=== PATIENT | male | born 1970 | race Caucasian/White ===

== ENCOUNTER 2020-08-13 12:53 | Inpatient (IN) ==
[2020-08-13 12:58] VITALS: BMI 29.2
--- NOTE | 2020-08-13 13:36 | DR.EXTPAIN ---
HPI Time seen Time Seen by Provider: 08/13/20 13:21 PCP Primary Care Physician: THALIA Complaint/Symptoms Chief Complaint:: PT C/O INFECTED LT GREAT TOE. PT STATES THE TOE HAS BEEN INFECTED FOR APPROX 1 MONTH. PT STATES HE HAS JUST BEEN WEARING THE WRONG SHOES. PT IS NOTED TO BE A DIABETIC COVID-19 Coronavirus risk:travel/contact w/high risk person: No Has patient experienced Coronavirus symptoms: No Source History Provided: Patient Mode of arrival Mode of Arrival: Ambulatory Timing Onset of Chief Complaint: 07/14/20 PMH PMH Past Medical History: Yes Past Medical History: Diabetes and Hypertension Past Surgical History: No Family History History of Family Medical Conditions: No Social History Does any household member use tobacco: No Alcohol Use: Heavy and DAILY Do you use any recreational Drugs:: No Lives With: Family Lives Where: Home Travel Risk Coronavirus risk:travel/contact w/high risk person: No Has patient experienced Coronavirus symptoms: No Infectious screening In the last 2 months have you had wt loss of >10#?: NO Have you had fever, night sweats or hemotysis?: No Have you traveled outside the country in the last 6 months?: No Isolation: Standard PE Vital Signs Vitals: Temperature 98.2 F Pulse Rate [Right Radial] 88 Pulse Rate 98 Respiratory Rate 20 Blood Pressure [Left Arm] 158/88 Blood Pressure 166/82 O2 Sat by Pulse Oximetry 100 ROR Labs Reviewed Result Diagrams: 08/13/20 13:49 08/13/20 13:53 Laboratory: 08/13/20 13:58 Toe - Left Big Wound Gram Stain - Final WBC 7.7 X10^3/uL (3.6-10.0) 08/13/20 13:49 RBC 3.92 X10^6/uL (3.5-5.4) 08/13/20 13:49 Hgb 12.5 g/dL (12.0-16.0) 08/13/20 13:49 Hct 35.7 % (36.0-47.0) L 08/13/20 13:49 MCV 91.0 fL (80.0-100.0) 08/13/20 13:49 MCH 31.8 pg (27.0-34.0) 08/13/20 13:49 MCHC 35.0 g/dL (33.0-35.0) 08/13/20 13:49 RDW 13.0 % (11.6-16.5) 08/13/20 13:49 Plt Count 287 X10^3/uL (150.0-450.0) 08/13/20 13:49 MPV 7.8 fL (7.4-11.0) 08/13/20 13:49 Neut % (Auto) 70.1 % (42.0-75.0) 08/13/20 13:49 Lymph % (Auto) 15.2 % (21.0-51.0) L 08/13/20 13:49 Converse % (Auto) 8.2 % (0.0-13.0) 08/13/20 13:49 Eos % (Auto) 4.8 % (0.9-2.9) H 08/13/20 13:49 Baso % (Auto) 1.7 % (0.2-1.0) H 08/13/20 13:49 Neut # (Auto) 5.4 x10^3/uL (2.2-4.8) H 08/13/20 13:49 Lymph # (Auto) 1.2 X10^3/uL (1.3-2.9) L 08/13/20 13:49 Converse # (Auto) 0.6 x10^3/uL (0.3-0.8) 08/13/20 13:49 Eos # (Auto) 0.4 x10^3/uL (0.0-0.2) H 08/13/20 13:49 Baso # (Auto) 0.1 X10^3/uL (0.0-0.1) 08/13/20 13:49 Absolute Nucleated RBC 0.0 /100WBC 08/13/20 13:49 Sodium 136 mmol/L (136-145) 08/13/20 13:53 Corrected Sodium 140 mmol/L (136-145) 08/13/20 13:53 Potassium 4.1 mmol/L (3.5-5.1) 08/13/20 13:53 Chloride 98 mmol/L (98-107) 08/13/20 13:53 Carbon Dioxide 28.7 mmol/L (21-32) 08/13/20 13:53 BUN 5 mg/dL (7-18) L 08/13/20 13:53 Creatinine 1.31 mg/dL (0.55-1.02) H 08/13/20 13:53 Est GFR (MDRD) Af Amer 55 (>60) L 08/13/20 13:53 Est GFR (MDRD) Non-Af 45 (>60) L 08/13/20 13:53 Glucose 276 mg/dL (65-99) H 08/13/20 13:53 Hemoglobin A1c 10.5 % 08/13/20 13:49 Calcium 8.6 mg/dL (8.5-10.1) 08/13/20 13:53 Corrected Calcium 9.2 mg/dL (8.5-10.1) 08/13/20 13:53 Total Bilirubin 0.30 mg/dL (0.2-1.0) 08/13/20 13:53 AST 10 Units/L (15-37) L 08/13/20 13:53 ALT 21 Units/L (12-78) 08/13/20 13:53 Alkaline Phosphatase 72 Units/L (46-116) 08/13/20 13:53 Total Protein 7.9 g/dL (6.4-8.2) 08/13/20 13:53 Albumin 3.2 g/dL (3.4-5.0) L 08/13/20 13:53 Globulin 4.7 g/dL (2.5-4.5) H 08/13/20 13:53 Albumin/Globulin Ratio 0.7 Ratio (1.1-2.1) L 08/13/20 13:53 Acetone, Semi-Quant Negative (NEGATIVE) 08/13/20 13:49 SARS CoV-2 RNA Rapid CONSTANCE Negative (NEGATIVE) 08/13/20 15:45 Opioid Opioid Risk Tool Age (Freddy box if 16-45): Yes History of Preadolescent Sexual Abuse: No Total: 1 Total Score Risk Category: Low Risk Copyright: Nir KAUR predicting aberrant behaviors
[2020-08-13] MEDS ORDERED: NS 1000 ML 1,000 ML ONE (13:54)
[2020-08-13] MEDS ORDERED: NS 1000 ML 1,000 ML IV SCH (14:00)
[2020-08-13 14:05] LABS: BASOPHILS # (AUTO) 0.1 X10^3/uL (0.0-0.1); BASOPHILS % (AUTO) 1.7 % (0.2-1.0); EOSINOPHILS # (AUTO) 0.4 x10^3/uL (0.0-0.2); EOSINOPHILS % (AUTO) 4.8 % (0.9-2.9); HEMATOCRIT 35.7 % (36.0-47.0); HEMOGLOBIN 12.5 g/dL (12.0-16.0); LYMPHOCYTES # (AUTO) 1.2 X10^3/uL (1.3-2.9); LYMPHOCYTES % (AUTO) 15.2 % (21.0-51.0); MEAN CORPUSCULAR HEMOGLOBIN 31.8 pg (27.0-34.0); MEAN PLATELET VOLUME 7.8 fL (7.4-11.0); MONOCYTES # (AUTO) 0.6 x10^3/uL (0.3-0.8); MONOCYTES % (AUTO) 8.2 % (0.0-13.0); NEUTROPHILS # (AUTO) 5.4 x10^3/uL (2.2-4.8); NEUTROPHILS % (AUTO) 70.1 % (42.0-75.0); PLATELET COUNT 287 X10^3/uL (150.0-450.0); RED BLOOD COUNT 3.92 X10^6/uL (3.5-5.4); WHITE BLOOD COUNT 7.7 X10^3/uL (3.6-10.0)
--- NOTE | 2020-08-13 14:17 | RAD ---
HISTORYPT C/O INFECTED LT GREAT TOE. PT STATES THE TOE HAS BEEN INFECTED FOR APPROX 1 MONTH.STUDYCHEST, 1 VIEWCOMPARISONNoneFINDINGSThe trachea is midline. The cardiac silhouette is unremarkable . The lungs are clear without focal infiltrate or effusion. The bony thorax is unremarkable.IMPRESSIONNo acute cardiopulmonary disease.Electronically signed by: Kirstie Salguero (Aug 13, 2020 14:15:31)
[2020-08-13 14:22] LABS: ALBUMIN 3.2 g/dL (3.4-5.0); CALCIUM 8.6 mg/dL (8.5-10.1); CARBON DIOXIDE 28.7 mmol/L (21-32); COR CA(FOR HYPOALB) 9.2 mg/dL (8.5-10.1); CREATININE 1.31 mg/dL (0.55-1.02); TOTAL PROTEIN 7.9 g/dL (6.4-8.2)
--- NOTE | 2020-08-13 14:23 | RAD ---
FOOT, LEFTHistory: PT C/O INFECTED LT GREAT TOE. PT STATES THE TOE HAS BEEN INFECTED FOR APPROX 1 MONTH.Comparison: NoneFindings: There is soft tissue swelling and ulceration of the great toe. There is underlying osteolysis and destruction of the great toe IP joint, proximal phalanx head and distal phalanx base, compatible with osteomyelitis/septic arthritis. No soft tissue gas to suggest necrotizing infection seen.Impression:Osteomyelitis/septic arthritis of the great toe IP joint. Recommend contrast enhanced MRI (of the forefoot only) to evaluate the extent of bone infection, which can be done on a nonemergent basis.Electronically signed by: DARIAN RAMIREZ (Aug 13, 2020 14:21:38)
[2020-08-13] MEDS ORDERED: VANCOMYCIN IV *PREMIX 1 G/200 ML BAG 1 G/200 ML PIGGYBACK IV ONE ×2 (15:37→15:42)
[2020-08-13 16:15] LABS: HEMOGLOBIN A1C 10.5 %
[2020-08-13 16:23] LABS: SERUM ACETONE NEGATIVE (NEGATIVE)
[2020-08-13 18:14] LABS: ABG ALLEN TEST POS; ABG BASE EXCESS 5.8 mmol/L (-2.0-2.0); ABG HCO3 29.8 mmol/L (22-26)
[2020-08-13] MEDS ORDERED: DUONEB 0.5 MG/3 MG (3 mL) NEB ONE (18:17)
[2020-08-13] MEDS ORDERED: SALINE 3% 15 ML NEB TX NEB ONE (18:17)
[2020-08-13] MEDS ORDERED: ZOFRAN TAB 4 MG PO PRN (18:19)
[2020-08-13] MEDS ORDERED: MORPHINE SULFATE INJ 4 MG IVP PRN (18:19)
[2020-08-13] MEDS: NS 1000 ML 1,000 ML IV SCH (18:52)
[2020-08-13] MEDS ORDERED: CATAPRES-TTS-2 TD SCH (20:00)
[2020-08-13] MEDS: ZOSYN VIAL 3.375 GRAMS 3.375 G in NS 100 ML IV + SPIKE MINIBAG* 100 ML IV SCH (20:42)
[2020-08-13] MEDS: CHECK PATCH XX SCH (20:45)
[2020-08-13] MEDS: SNACK - Diabetic Appropriate PO SCH (21:27)
[2020-08-14] MEDS: ZOSYN VIAL 3.375 GRAMS 3.375 G in NS 100 ML IV + SPIKE MINIBAG* 100 ML IV SCH ×4 (00:14→21:20)
[2020-08-14] MEDS: NS 1000 ML 1,000 ML IV SCH ×4 (01:06→17:03)
[2020-08-14] MEDS: VANCOMYCIN IV *PREMIX 1 G/200 ML BAG 1 G/200 ML PIGGYBACK IV SCH ×2 (03:36→16:58)
[2020-08-14 05:16] LABS: BASOPHILS # (AUTO) 0.1 X10^3/uL (0.0-0.1); BASOPHILS % (AUTO) 1.3 % (0.2-1.0); EOSINOPHILS # (AUTO) 0.3 x10^3/uL (0.0-0.2); EOSINOPHILS % (AUTO) 4.7 % (0.9-2.9); HEMATOCRIT 34.7 % (42.0-54.0); HEMOGLOBIN 12.1 g/dL (13.5-18.0); LYMPHOCYTES # (AUTO) 1.5 X10^3/uL (1.3-2.9); LYMPHOCYTES % (AUTO) 21.4 % (21.0-51.0); MEAN CORPUSCULAR HEMOGLOBIN 31.8 pg (27.0-34.0); MEAN CORPUSCULAR HGB CONC 34.9 g/dL (33.0-35.0); MEAN PLATELET VOLUME 7.8 fL (7.4-11.0); MONOCYTES # (AUTO) 0.6 x10^3/uL (0.3-0.8); MONOCYTES % (AUTO) 8.6 % (0.0-13.0); NEUTROPHILS # (AUTO) 4.4 x10^3/uL (2.2-4.8); PLATELET COUNT 272 X10^3/uL (150.0-450.0); RED BLOOD COUNT 3.81 X10^6/uL (4.7-6.0); RED CELL DISTRIBUTION WIDTH 12.7 % (11.6-16.5); WHITE BLOOD COUNT 6.8 X10^3/uL (3.6-10.0)
[2020-08-14 05:17] LABS: ALANINE AMINOTRANSFERASE 20 Units/L (12-78); ALBUMIN 2.8 g/dL (3.4-5.0); ALKALINE PHOSPHATASE 61 Units/L (46-116); ASPARTATE AMINO TRANSFERASE 13 Units/L (15-37); BLOOD UREA NITROGEN 6 mg/dL (7-18); CALCIUM 8.7 mg/dL (8.5-10.1); CARBON DIOXIDE 31.3 mmol/L (21-32); CHLORIDE 101 mmol/L (98-107); COR CA(FOR HYPOALB) 9.7 mg/dL (8.5-10.1); COR NA(FOR HYPERGLY) 142 mmol/L (136-145); CREATININE 1.03 mg/dL (0.70-1.30); SODIUM 139 mmol/L (136-145); TOTAL PROTEIN 7.2 g/dL (6.4-8.2); eGFR NON BLACK RACES > 60 (>60)
[2020-08-14] MEDS: CHECK PATCH XX SCH ×2 (08:05→22:00)
[2020-08-14] MEDS ORDERED: XYLOCAINE 1 % (PLAIN) ONE (13:00)
[2020-08-14] MEDS: HumuLIN R SUBCUT PRN (17:10)
[2020-08-14] MEDS: SNACK - Diabetic Appropriate PO SCH (20:00)
--- NOTE | 2020-08-14 20:43 | DR.H&P ---
H&P - History & Physical for Day of: H&P Date: 08/13/20 - Chief Complaint Chief Complaint: LEFT GREAT TOE WOUND, SWELLING, PAIN, DRAINAGE - History of Present Illness History of Present Illness: IS A 50 YEAR OLD WHITE MALE WHO PRESENTED TO THE ER WITH COMPLAINTS OF REDNESS, SWELLING, AND DRAINAGE TO THE LEFT GREAT TOE. PATIENT STATED THAT SWELLING AND DRAINAGE STARTED ABOUT ONE MONTH PRIOR. ON EXAMINATION, LEFT GREAT TOE IS NOTED TO HAVE MODERATE SWELLING, ERYTHEMA, AND PURULENT DRAINAGE. THERE IS AN OPEN WOUND TO THE TIP OF THE TOE. PATIENT HAS A PMH OF DIABETES AND HTN. PATIENT REPORTS THAT HIS BLOOD SUGAR USUALLY RUNS AROU [place] 400. HE REPORTS THAT HE HAS BEEN PRESCRIBED METFORMIN 1000MG PO BID, BUT HASNT BEEN TAKING IT. ON ARRIVAL TO THE ER, VITALS WERE 98.2-98-20-98%-166/82. LABS WERE OBTAINED. ABNORMAL LAB VALUES INCLUDE THE FOLLOWING: HCT 35.7, BUN 5, CREATININE 1.31, GLUCOSE 276, AST 10, ALBUMIN 3.2, GLOBULIN 4.7. ACETONES NEGATIVE, COVID-19 NEGATIVE. BLOOD AND WOUND CULTURES WERE SET UP. LEFT FOOT XRAY WAS OBTAINED AND REVEALED: Osteomyelitis/septic arthritis of the great toe IP joint. Recommend contrast enhanced MRI (of the forefoot only) to evaluate the extent of bone infection, which can be done on a nonemergent basis. A CHEST XRAY WAS OBTAINED AND REVEALED: The trachea is midline. The cardiac silhouette is unremarkable . The lungs are clear without focal infiltrate or effusion. The bony thorax is unremarkable. IN THE ER, HE WAS GIVEN VANCOMYCIN 1G IV X 1 DOSE. HE WAS ADMITTED TO THE HOSPITAL FOR FURTHER EVALUATION AND TREATMENT OF OSTEOMYELITIS OF THE LEFT FOOT, DIABETIC FOOT ULCER, AND SEPTIC JOINT. HE WAS STARTED ON NORMAL SALINE AT 125 ML/HR, ZOSYN 3.375G IV TID, VANCOMYCIN 1G IV Q12H, ZOFRAN 4MG PO Q8H PRN, MORPHINE 4MG IV Q6H PRN PAIN, OTBS ACHS, CATAPRES PATCH 0.2MG TD/HR, AND HUMULIN R SLIDING SCALE. WE WILL CONSULT WITH , GENERAL SURGEON FOR POSSIBLE DEBRIDEMENT. OTHERWISE, WE WILL FOLLOW UP WITH AM LABS AND CONTINUE TO MONITOR. TIME SPENT ON CLINICAL ASSESSMENT, REVIEWING LABS AND IMAGING, DECISION MAKING, AND DOCUMENTATION GREATER THAN 75 MINS. - Past Medical History Past Medical History: Hypertension, Diabetes - Family History Family Medical History: Diabetes Mellitus, Cancer, [place], Hypertension - Social History Does patient currently use any type of tobacco product: No Have you used tobacco products in the last 12 months: No Type of Tobacco Use: Cigarettes How many years tobacco product used: 15 Does any household member use tobacco: No Alcohol Use: DAILY Drug Use: None - Medications Home Medications: No Known Drug Allergies Allergy (Verified 08/13/20 12:54) CONTINUE taking the following medications NK 08/14/20 [History] - Review of Systems Constitutional: No Symptoms Reported Eyes: No Symptoms Reported ENT: No Symptoms Reported Respiratory: Shortness of Breath Cardiovascular: No Symptoms Reported Gastrointestinal: No Symptoms Reported Genitourinary: No Symptoms Reported Musculoskeletal: Foot Pain Skin: See HPI, Wound Neurological: No Symptoms Reported - Physical Exam Vital Signs: Temperature 97.7 F Pulse Rate [Left Brachial] 71 Pulse Rate [Right Radial] 80 Pulse Rate 83 Respiratory Rate 20 Blood Pressure [Left Arm] 145/77 Blood Pressure 166/82 O2 Sat by Pulse Oximetry 99 Oriented: Normal Eyes: Normal Ear: Normal Nose: Normal Throat: Normal Respiratory: Diminished Throughout Cardiovascular: Normal : Normal Auscultation: Bowel Sounds: Normal Palpation: Normal Tenderness: Normal Skin: Red, Tender, Wound Musculoskeletal: Left, Foot, Swelling Psychiatric: Normal Mood Description: Calm Affect: Normal Speech Pattern: Clear - Assessment/Plan (1) Osteomyelitis of foot, left, acute Status: Acute Plan: ADMIT, NORMAL SALINE AT 125 ML/HR, ZOSYN 3.375G IV TID, VANCOMYCIN 1G IV Q12H, ZOFRAN 4MG PO Q8H PRN, MORPHINE 4MG IV Q6H PRN PAIN, OTBS ACHS, CATAPRES PATCH 0.2MG TD/HR, AND HUMULIN R SLIDING SCALE (2) Septic joint Qualifiers: Septic arthritis location: foot Septic arthritis organism: due to unspecified organism Laterality: left Qualified Code(s): M00.9 - Pyogenic arthritis, unspecified Status: Acute (3) Diabetic foot ulcer Qualifiers: Diabetic foot ulcer location: toe Diabetes mellitus type: type 2 Laterality: left Non-pressure ulcer stage: unspecified non-pressure ulcer s tage Qualified Code(s): E11.621 - Type 2 diabetes mellitus with foot ulcer; L97.529 - Non-pressure chronic ulcer of other part of left foot with unspecified severity Status: Acute (4) Diabetes Qualifiers: Diabetes mellitus type: type 2 Diabetes mellitus complication status: with skin complications Diabetes mellitus complication detail: with foot ulcer Status: Chronic - Allergies Allergies/Adverse Reactions: Allergies Allergy/AdvReac Type Severity Reaction Status Date / Time No Known Drug Allergies Allergy Verified 08/13/20 12:54
[2020-08-15] MEDS: NS 1000 ML 1,000 ML IV SCH ×3 (01:49→15:22)
[2020-08-15 03:17] LABS: ALANINE AMINOTRANSFERASE 22 Units/L (12-78); ALBUMIN 2.9 g/dL (3.4-5.0); ALKALINE PHOSPHATASE 61 Units/L (46-116); ASPARTATE AMINO TRANSFERASE 14 Units/L (15-37); BLOOD UREA NITROGEN 7 mg/dL (7-18); CALCIUM 8.8 mg/dL (8.5-10.1); CARBON DIOXIDE 31.8 mmol/L (21-32); CHLORIDE 102 mmol/L (98-107); COR CA(FOR HYPOALB) 9.7 mg/dL (8.5-10.1); COR NA(FOR HYPERGLY) 141 mmol/L (136-145); SODIUM 139 mmol/L (136-145); TOTAL PROTEIN 7.6 g/dL (6.4-8.2); eGFR NON BLACK RACES > 60 (>60)
[2020-08-15 03:20] LABS: BASOPHILS # (AUTO) 0.1 X10^3/uL (0.0-0.1); BASOPHILS % (AUTO) 1.3 % (0.2-1.0); EOSINOPHILS # (AUTO) 0.3 x10^3/uL (0.0-0.2); EOSINOPHILS % (AUTO) 5.1 % (0.9-2.9); HEMOGLOBIN 12.9 g/dL (13.5-18.0); LYMPHOCYTES # (AUTO) 1.5 X10^3/uL (1.3-2.9); LYMPHOCYTES % (AUTO) 26.8 % (21.0-51.0); MEAN CORPUSCULAR HEMOGLOBIN 31.9 pg (27.0-34.0); MEAN CORPUSCULAR VOLUME 91.3 fL (80.0-100.0); MEAN PLATELET VOLUME 7.6 fL (7.4-11.0); MONOCYTES # (AUTO) 0.5 x10^3/uL (0.3-0.8); MONOCYTES % (AUTO) 9.2 % (0.0-13.0); NEUTROPHILS # (AUTO) 3.2 x10^3/uL (2.2-4.8); NEUTROPHILS % (AUTO) 57.6 % (42.0-75.0); PLATELET COUNT 251 X10^3/uL (150.0-450.0); RED BLOOD COUNT 4.05 X10^6/uL (4.7-6.0); WHITE BLOOD COUNT 5.6 X10^3/uL (3.6-10.0)
[2020-08-15 03:32] LABS: VANCOMYCIN,TROUGH 9.4 ug/mL (15-20)
[2020-08-15] MEDS: VANCOMYCIN IV *PREMIX 1 G/200 ML BAG 1 G/200 ML PIGGYBACK IV SCH ×3 (03:39→21:00)
[2020-08-15] MEDS: ZOSYN VIAL 3.375 GRAMS 3.375 G in NS 100 ML IV + SPIKE MINIBAG* 100 ML IV SCH ×3 (05:30→22:18)
[2020-08-15] MEDS: CHECK PATCH XX SCH ×2 (09:34→21:04)
[2020-08-15] MEDS: HumuLIN R SUBCUT PRN ×3 (11:25→20:50)
[2020-08-15] MEDS ORDERED: NS 1000 ML 1,000 ML ONE (12:03)
[2020-08-15] MEDS ORDERED: FENTANYL INJ 100 mcg ONE (12:14)
[2020-08-15] MEDS ORDERED: DIPRIVAN VIAL ONE (12:18)
[2020-08-15] MEDS ORDERED: BETADINE SOLN ONE (12:25)
--- NOTE | 2020-08-15 19:59 | PCM.PROG ---
Progress Note - Progress Note for Day of Date of Exam: 08/15/20 - Subjective Subjective: THE PATIENT IS A 50-YEAR-OLD WHITE MALE WHO WAS ADMITTED ON 08/13/20 SECONDARY TO CELLULITIS OF THE LEFT GREAT TOE. IMAGING READS PROBABLE OSTEOMYELITIS. SURGERY FOR i&d IS SCHEDULED FOR TODAY. PATIENT STATES THAT WOUND DEVELOPED FROM WEARING ILL FITTING SHOES. PATIENT STATES HE DOES HAVE DECREASED SENSATION TO HIS TOES. DISCUSSED WITH PATIENT CONTROLLING HIS BLOOD SUGARS. PATIENT DENIES ANY PAIN OR COMPLAINTS. - Past Medical Family Social History Past Med/Fam/Surg Hx: No changes since H&P Allergies: Allergies No Known Drug Allergies Allergy (Verified 08/13/20 12:54) - Review of Systems ROS: No change since H&P - Vital Signs and I&O's Vital Signs: Temperature 98.5 F Pulse Rate [Right Brachial] 100 Pulse Rate [Left Brachial] 64 Pulse Rate [Right Radial] 80 Pulse Rate 83 Respiratory Rate 18 Blood Pressure [Right Arm] 148/85 Blood Pressure [Left Arm] 182/91 Blood Pressure 166/82 O2 Sat by Pulse Oximetry 95 Intake and Output: Intake & Output 08/12/20 08/13/20 08/14/20 08/15/20 23:59 23:59 23:59 23:59 Intake Total 1375 / 1375 2956 / 2956 3003 / 3003 Output Total 1000 / 1000 1600 / 1600 2780 / 2780 Balance 375 / 375 1356 / 1356 223 / 223 - Physical Exam Oriented: Normal Eyes: Normal Ear: Normal Nose: Normal Throat: Normal Cardiovascular: Normal : Normal Auscultation: Bowel Sounds: Normal Palpation: Normal Tenderness: Normal Skin: Red, Tender, Wound (left great toe edematous with erythema and necrotic crusting to base of toe. Twice circumference of right great toe.) Musculoskeletal: Left, Foot, Swelling Psychiatric: Normal Mood Description: Calm Affect: Normal Speech Pattern: Clear, Appropriate - Laboratory and Diagnostics Result Diagrams: 08/15/20 03:00 08/15/20 03:00 Labs: 08/15/20 12:56 Toe - Left Big Wound Gram Stain - Final 08/13/20 13:53 Blood Blood Culture - Preliminary 08/13/20 13:49 Blood Blood Culture - Preliminary 08/13/20 13:58 Toe - Left Big Wound Gram Stain - Final 08/13/20 13:58 Toe - Left Big Wound Culture - Final Escherichia Coli Proteus Vulgaris Laboratory WBC 5.6 X10^3/uL (3.6-10.0) 08/15/20 03:00 RBC 4.05 X10^6/uL (4.7-6.0) L 08/15/20 03:00 Hgb 12.9 g/dL (13.5-18.0) L 08/15/20 03:00 Hct 37.0 % (42.0-54.0) L 08/15/20 03:00 MCV 91.3 fL (80.0-100.0) 08/15/20 03:00 MCH 31.9 pg (27.0-34.0) 08/15/20 03:00 MCHC 35.0 g/dL (33.0-35.0) 08/15/20 03:00 RDW 13.0 % (11.6-16.5) 08/15/20 03:00 Plt Count 251 X10^3/uL (150.0-450.0) 08/15/20 03:00 MPV 7.6 fL (7.4-11.0) 08/15/20 03:00 Neut % (Auto) 57.6 % (42.0-75.0) 08/15/20 03:00 Lymph % (Auto) 26.8 % (21.0-51.0) 08/15/20 03:00 Ritchie % (Auto) 9.2 % (0.0-13.0) 08/15/20 03:00 Eos % (Auto) 5.1 % (0.9-2.9) H 08/15/20 03:00 Baso % (Auto) 1.3 % (0.2-1.0) H 08/15/20 03:00 Neut # (Auto) 3.2 x10^3/uL (2.2-4.8) 08/15/20 03:00 Lymph # (Auto) 1.5 X10^3/uL (1.3-2.9) 08/15/20 03:00 Ritchie # (Auto) 0.5 x10^3/uL (0.3-0.8) 08/15/20 03:00 Eos # (Auto) 0.3 x10^3/uL (0.0-0.2) H 08/15/20 03:00 Baso # (Auto) 0.1 X10^3/uL (0.0-0.1) 08/15/20 03:00 Absolute Nucleated RBC 0.1 /100WBC 08/15/20 03:00 Sample Site Rr 08/13/20 17:51 ABG pH 7.480 (7.35-7.45) H 08/13/20 17:51 ABG pCO2 40.0 mmHg (35.0-45.0) 08/13/20 17:51 ABG pO2 86.0 mmHg (80.0-100.0) 08/13/20 17:51 ABG HCO3 29.8 mmol/L (22-26) H 08/13/20 17:51 ABG O2 Saturation 97.0 % (90-100) 08/13/20 17:51 ABG Base Excess 5.8 mmol/L (-2.0-2.0) H 08/13/20 17:51 Bereket Test Pos 08/13/20 17:51 A-a Gradient 14.0 mmHg 08/13/20 17:51 FiO2 21 08/13/20 17:51 Blood Gas Comments Pt tianna well cdn 08/13/20 17:51 Sodium 139 mmol/L (136-145) 08/15/20 03:00 Corrected Sodium 141 mmol/L (136-145) 08/15/20 03:00 Potassium 3.9 mmol/L (3.5-5.1) 08/15/20 03:00 Chloride 102 mmol/L (98-107) 08/15/20 03:00 Carbon Dioxide 31.8 mmol/L (21-32) 08/15/20 03:00 BUN 7 mg/dL (7-18) 08/15/20 03:00 Creatinine 1.00 mg/dL (0.70-1.30) 08/15/20 03:00 Est GFR (MDRD) Af Amer > 60 (>60) 08/15/20 03:00 Est GFR (MDRD) Non-Af > 60 (>60) 08/15/20 03:00 Glucose 198 mg/dL (65-99) H 08/15/20 03:00 POC Glucose (mg/dL) 210 mg/dL (65-99) H 08/15/20 15:33 Hemoglobin A1c 10.5 % 08/13/20 13:49 Calcium 8.8 mg/dL (8.5-10.1) 08/15/20 03:00 Corrected Calcium 9.7 mg/dL (8.5-10.1) 08/15/20 03:00 Total Bilirubin 0.40 mg/dL (0.2-1.0) 08/15/20 03:00 AST 14 Units/L (15-37) L 08/15/20 03:00 ALT 22 Units/L (12-78) 08/15/20 03:00 Alkaline Phosphatase 61 Units/L (46-116) 08/15/20 03:00 Total Protein 7.6 g/dL (6.4-8.2) 08/15/20 03:00 Albumin 2.9 g/dL (3.4-5.0) L 08/15/20 03:00 Globulin 4.7 g/dL (2.5-4.5) H 08/15/20 03:00 Albumin/Globulin Ratio 0.6 Ratio (1.1-2.1) L 08/15/20 03:00 Vancomycin Trough 9.4 ug/mL (15-20) L 08/15/20 03:00 Acetone, Semi-Quant Negative (NEGATIVE) 08/13/20 13:49 SARS CoV-2 RNA Rapid CONSTANCE Negative (NEGATIVE) 08/13/20 15:45 - Plan (1) Osteomyelitis of foot, left, acute Status: Acute Plan: ZOSYN 3.375G IV TID, VANCOMYCIN 1G IV Q12H, SURGICAL CONSULT (2) Diabetic foot ulcer Status: Acute Qualifiers: Diabetic foot ulcer location: toe Diabetes mellitus type: type 2 Laterali ty: left Non-pressure ulcer stage: unspecified non-pressure ulcer stage Qualified Code(s): E11.621 - Type 2 diabetes mellitus with foot ulcer; L97.529 - Non-pressure chronic ulcer of other part of left foot with unspecified severity Plan: SURGICAL CONSULT - SURGERY PENDING (3) Diabetes Status: Chronic Qualifiers: Diabetes mellitus type: type 2 Diabetes mellitus complication status: with skin complications Diabetes mellitus complication detail: with foot ulcer Plan: BLOOD SUGAR CHECKS WITH SLIDING SCALE COVERAGE
[2020-08-15] MEDS: SNACK - Diabetic Appropriate PO SCH (20:05)
[2020-08-16] MEDS: NS 1000 ML 1,000 ML IV SCH ×4 (01:41→15:10)
[2020-08-16 05:12] LABS: BASOPHILS # (AUTO) 0.1 X10^3/uL (0.0-0.1); BASOPHILS % (AUTO) 1.1 % (0.2-1.0); EOSINOPHILS # (AUTO) 0.3 x10^3/uL (0.0-0.2); EOSINOPHILS % (AUTO) 5.2 % (0.9-2.9); HEMOGLOBIN 12.3 g/dL (13.5-18.0); LYMPHOCYTES # (AUTO) 1.3 X10^3/uL (1.3-2.9); LYMPHOCYTES % (AUTO) 22.9 % (21.0-51.0); MEAN CORPUSCULAR HEMOGLOBIN 31.9 pg (27.0-34.0); MEAN CORPUSCULAR HGB CONC 35.1 g/dL (33.0-35.0); MEAN PLATELET VOLUME 7.7 fL (7.4-11.0); MONOCYTES # (AUTO) 0.5 x10^3/uL (0.3-0.8); MONOCYTES % (AUTO) 9.7 % (0.0-13.0); NEUTROPHILS # (AUTO) 3.4 x10^3/uL (2.2-4.8); NEUTROPHILS % (AUTO) 61.1 % (42.0-75.0); PLATELET COUNT 272 X10^3/uL (150.0-450.0); RED BLOOD COUNT 3.85 X10^6/uL (4.7-6.0); RED CELL DISTRIBUTION WIDTH 12.9 % (11.6-16.5); WHITE BLOOD COUNT 5.6 X10^3/uL (3.6-10.0)
[2020-08-16 05:18] LABS: VANCOMYCIN,TROUGH 13.8 ug/mL (15-20)
[2020-08-16] MEDS: ZOSYN VIAL 3.375 GRAMS 3.375 G in NS 100 ML IV + SPIKE MINIBAG* 100 ML IV SCH ×3 (05:22→22:23)
[2020-08-16 05:30] LABS: ALANINE AMINOTRANSFERASE 26 Units/L (12-78); ALBUMIN 2.8 g/dL (3.4-5.0); ALKALINE PHOSPHATASE 58 Units/L (46-116); ASPARTATE AMINO TRANSFERASE 25 Units/L (15-37); BLOOD UREA NITROGEN 9 mg/dL (7-18); CALCIUM 8.7 mg/dL (8.5-10.1); CHLORIDE 105 mmol/L (98-107); COR CA(FOR HYPOALB) 9.7 mg/dL (8.5-10.1); COR NA(FOR HYPERGLY) 143 mmol/L (136-145); CREATININE 1.02 mg/dL (0.70-1.30); SODIUM 141 mmol/L (136-145); TOTAL PROTEIN 7.4 g/dL (6.4-8.2); eGFR NON BLACK RACES > 60 (>60)
[2020-08-16] MEDS ORDERED: PHARMACY COMMENT IV ONE (05:30)
[2020-08-16] MEDS: VANCOMYCIN IV *PREMIX 1 G/200 ML BAG 1 G/200 ML PIGGYBACK IV SCH ×3 (06:07→21:10)
--- NOTE | 2020-08-16 08:54 | RAD ---
HISTORYPICC placementSTUDYChest AP [id number] is a new right-sided PICC line with its tip in the superior vena cava near the cavoatrial junction. Heart size is normal mable are normal lung jennings are clear. Bony thorax is unremarkable.IMPRESSIONRight PICC tip superior vena cava near the cavoatrial junctionL ungs clearElectronically signed by: JOSE A RDZ (Aug 16, 2020 08:52:22)
[2020-08-16] MEDS: CHECK PATCH XX SCH ×2 (09:23→21:12)
--- NOTE | 2020-08-16 09:46 | DR.UPDATE ---
H&P Update History and Physical Update: History and Physical reviewed and patient examined. Changes noted: NO Yes with the following: H&P Reviewed: Yes Patient was examined?: Yes Procedures (ALL) - Central Line Placement PCM.CLCO: written consent Time out performed: Yes Patient placed pm monitor/pulse ox: Yes prep: mask, gown, gloves, other Centrial line prep: chlorhexidine scrub, sterile drapes applied Local anesthsia used: lidocane 1% Ultrasound used for placement: Yes (right basilic id'd via u/s) Central line lumen ininserted: double (cannulation visualized via u/s) Post procedure: good blood return, all ports aspirated, flushed,capped, sterile dressing applied Post procedure xray: tip oc catheter in good position, no pneumothorax seen Patient tolerated procedure: Yes Complications: none
[2020-08-16] MEDS: HumuLIN R SUBCUT PRN ×3 (11:30→21:11)
--- NOTE | 2020-08-16 12:01 | PCM.PROG ---
Progress Note - Progress Note for Day of Date of Exam: 08/16/20 - Subjective Subjective: WAS ADMITTED ON 08/13 FOR OSTEOMYELITIS OF LEFT TOE, CELLULITIS, DIABETIC FOOT ULCER, AND SEPTIC JOINT. HE IS DAY 1 STATUS POST DEBRIDEMENT AND PLACEMENT OF PICC LINE FOR ANTIBIOTICS. PATIENT IS AN NON- COMPLIANT DIABETIC. TODAY, HE IS ALERT AND ORIENTED, LYING IN BED ON MORNING ROUNDS. HE CONTINUES WITH PAIN TO THE LEFT FOOT/TOE. THERE IS A DRESSING NOTED TO TOE THAT IS DRY AND INTACT AT THIS TIME. HE DOES ADMIT TO DECREASED SENSATION TO HIS TOES. HIS VITALS THIS MORNING ARE: 97.8-70-18-99%-151/66. LABS WERE OBTAINED. ABNORMAL LAB VALUES INCLUDE THE FOLLOWING: RBC 3.85, HGB 12.3, HCT 35.0, GLUCOSE 197, ALBUMIN 2.8, GLOBULIN 4.6. WOUND CULTURES THAT WERE TAKEN PRIOR TO DEBRIDEMENT REVEAL GROWTH OF E.COLI AND PROTEUS VULGARIS. WOUND CULTURES WERE REPEATED WHILE IN THE ER. BLOOD CULTURES ARE ALSO PENDING. REPORTS THAT IT IS LIKELY THAT PATIENT MAY LOSE HIS TOE. RECOMMENDS IV ANTIBIOTICS FOR 6-8 WEEKS AFTER DISCHARGE WELL DAILY DRESSING CHANGES. WE ARE AWAITING FINAL CULTURE REPORTS. HE IS CURRENTLY RECEIVING NORMAL SALINE AT 125 ML/HR, ZOSYN 3.375G IV TID, VANCOMYCIN 1G IV Q8H, ZOFRAN 4MG PO Q8H PRN, MORPHINE 4MG IV Q6H PRN PAIN, OTBS ACHS, CATAPRES PATCH 0.2MG TD/HR, AND HUMULIN R SLIDING SCALE. WE WILL CONTINUE WITH CURRENT PLAN OF CARE TODAY. WILL CONTINUE TO MONITOR HIM. OTHERWISE, WE WILL FOLLOW UP WITH AM LABS AND CONTINUE TO MONITOR. TIME SPENT ON CLINICAL ASSESSMENT, REVIEWING LABS AND IMAGING, DECISION MAKING, AND DOCUMENTATION GREATER THAN 45 MINUTES. - Past Medical Family Social History Past Med/Fam/Surg Hx: No changes since H&P Allergies: Allergies No Known Drug Allergies Allergy (Verified 08/13/20 12:54) - Review of Systems ROS: No change since H&P - Vital Signs and I&O's Vital Signs: Temperature 97.7 F Pulse Rate [Radial] 66 Pulse Rate [Right Brachial] 100 Pulse Rate [Left Brachial] 64 Pulse Rate [Right Radial] 78 Pulse Rate 83 Respiratory Rate 18 Blood Pressure [Right Arm] 153/84 Blood Pressure [Left Arm] 151/66 Blood Pressure 166/82 O2 Sat by Pulse Oximetry 100 Intake and Output: Intake & Output 08/14/20 08/15/20 08/16/20 08/17/20 11:59 11:59 11:59 11:59 Intake Total 2049 / 2049 3504 / 3504 3314 / 3314 Output Total 1400 / 1400 2380 / 2380 3000 / 3000 Balance 650 / 650 1124 / 1124 314 / 314 - Physical Exam Oriented: Normal Eyes: Normal Ear: Normal Nose: Normal Throat: Normal Respiratory: Generalized, Diminished Cardiovascular: Normal : Normal Auscultation: Bowel Sounds: Normal Palpation: Normal Tenderness: Normal Skin: Red, Tender, Wound (left great toe edematous with erythema and necrotic crusting to base of toe. Twice circumference of right great toe.) Musculoskeletal: Left, Foot, Swelling Psychiatric: Normal Mood Description: Calm Affect: Normal Speech Pattern: Clear, Appropriate - Laboratory and Diagnostics Result Diagrams: 08/16/20 04:15 08/16/20 04:15 Labs: 08/15/20 12:56 Toe - Left Big Wound Gram Stain - Final 08/15/20 12:56 Toe - Left Big Wound Culture - Preliminary 08/13/20 13:53 Blood Blood Culture - Preliminary 08/13/20 13:49 Blood Blood Culture - Preliminary 08/13/20 13:58 Toe - Left Big Wound Gram Stain - Final 08/13/20 13:58 Toe - Left Big Wound Culture - Final Escherichia Coli Proteus Vulgaris Laboratory WBC 5.6 X10^3/uL (3.6-10.0) 08/16/20 04:15 RBC 3.85 X10^6/uL (4.7-6.0) L 08/16/20 04:15 Hgb 12.3 g/dL (13.5-18.0) L 08/16/20 04:15 Hct 35.0 % (42.0-54.0) L 08/16/20 04:15 MCV 91.0 fL (80.0-100.0) 08/16/20 04:15 MCH 31.9 pg (27.0-34.0) 08/16/20 04:15 MCHC 35.1 g/dL (33.0-35.0) H 08/16/20 04:15 RDW 12.9 % (11.6-16.5) 08/16/20 04:15 Plt Count 272 X10^3/uL (150.0-450.0) 08/16/20 04:15 MPV 7.7 fL (7.4-11.0) 08/16/20 04:15 Neut % (Auto) 61.1 % (42.0-75.0) 08/16/20 04:15 Lymph % (Auto) 22.9 % (21.0-51.0) 08/16/20 04:15 Burnett % (Auto) 9.7 % (0.0-13.0) 08/16/20 04:15 Eos % (Auto) 5.2 % (0.9-2.9) H 08/16/20 04:15 Baso % (Auto) 1.1 % (0.2-1.0) H 08/16/20 04:15 Neut # (Auto) 3.4 x10^3/uL (2.2-4.8) 08/16/20 04:15 Lymph # (Auto) 1.3 X10^3/uL (1.3-2.9) 08/16/20 04:15 Burnett # (Auto) 0.5 x10^3/uL (0.3-0.8) 08/16/20 04:15 Eos # (Auto) 0.3 x10^3/uL (0.0-0.2) H 08/16/20 04:15 Baso # (Auto) 0.1 X10^3/uL (0.0-0.1) 08/16/20 04:15 Absolute Nucleated RBC 0.0 /100WBC 08/16/20 04:15 Sample Site Rr 08/13/20 17:51 ABG pH 7.480 (7.35-7.45) H 08/13/20 17:51 ABG pCO2 40.0 mmHg (35.0-45.0) 08/13/20 17:51 ABG pO2 86.0 mmHg (80.0-100.0) 08/13/20 17:51 ABG HCO3 29.8 mmol/L (22-26) H 08/13/20 17:51 ABG O2 Saturation 97.0 % (90-100) 08/13/20 17:51 ABG Base Excess 5.8 mmol/L (-2.0-2.0) H 08/13/20 17:51 Bereket Test Pos 08/13/20 17:51 A-a Gradient 14.0 mmHg 08/13/20 17:51 FiO2 21 08/13/20 17:51 Blood Gas Comments Pt tianna well cdn 08/13/20 17:51 Sodium 141 mmol/L (136-145) 08/16/20 04:15 Corrected Sodium 143 mmol/L (136-145) 08/16/20 04:15 Potassium 3.9 mmol/L (3.5-5.1) 08/16/20 04:15 Chloride 105 mmol/L (98-107) 08/16/20 04:15 Carbon Dioxide 30.0 mmol/L (21-32) 08/16/20 04:15 BUN 9 mg/dL (7-18) 08/16/20 04:15 Creatinine 1.02 mg/dL (0.70-1.30) 08/16/20 04:15 Est GFR (MDRD) Af Amer > 60 (>60) 08/16/20 04:15 Est GFR (MDRD) Non-Af > 60 (>60) 08/16/20 04:15 Glucose 197 mg/dL (65-99) H 08/16/20 04:15 POC Glucose (mg/dL) 260 mg/dL (65-99) H 08/16/20 11:16 Hemoglobin A1c 10.5 % 08/13/20 13:49 Calcium 8.7 mg/dL (8.5-10.1) 08/16/20 04:15 Corrected Calcium 9.7 mg/dL (8.5-10.1) 08/16/20 04:15 Total Bilirubin 0.40 mg/dL (0.2-1.0) 08/16/20 04:15 AST 25 Units/L (15-37) 08/16/20 04:15 ALT 26 Units/L (12-78) 08/16/20 04:15 Alkaline Phosphatase 58 Units/L (46-116) 08/16/20 04:15 Total Protein 7.4 g/dL (6.4-8.2) 08/16/20 04:15 Albumin 2.8 g/dL (3.4-5.0) L 08/16/20 04:15 Globulin 4.6 g/dL (2.5-4.5) H 08/16/20 04:15 Albumin/Globulin Ratio 0.6 Ratio (1.1-2.1) L 08/16/20 04:15 Vancomycin Trough 13.8 ug/mL (15-20) L 08/16/20 04:15 Acetone, Semi-Quant Negative (NEGATIVE) 08/13/20 13:49 SARS CoV-2 RNA Rapid CONSTANCE Negative (NEGATIVE) 08/13/20 15:45 - Plan (1) Osteomyelitis of foot, left, acute Status: Acute Plan: WOUND CARE, NORMAL SALINE AT 125 ML/HR, ZOSYN 3.375G IV TID, VANCOMYCIN 1G IV Q8H, ZOFRAN 4MG PO Q8H PRN, MORPHINE 4MG IV Q6H PRN PAIN, OTBS ACHS, CATAPRES PATCH 0.2MG TD/HR, AND HUMULIN R SLIDING SCALE. (2) Septic joint Status: Acute Qualifiers: Septic arthritis location: foot Septic arthritis organism: due to unspecified organism Laterality: left Qualified Code(s): M00.9 - Pyogenic arthritis, unspecified (3) Diabetic foot ulcer Status: Acute Qualifiers: Diabetic foot ulcer location: toe Diabetes mellitus type: type 2 Laterality: left Non-pressure ulcer stage: unspecified non-pressure ulcer stage Qualified Code(s): E11.621 - Type 2 diabetes mellitus with foot ulcer; L97.529 - Non-pressure chronic ulcer of other part of left foot with unspecified severity Plan: SURGICAL CONSULT - SURGERY PENDING (4) Diabetes Status: Chronic Qualifiers: Diabetes mellitus type: type 2 Diabetes mellitus complication status: with skin complications Diabetes mellitus complication detail: with foot ulcer Plan: BLOOD SUGAR CHECKS WITH SLIDING SCALE COVERAGE
--- NOTE | 2020-08-16 14:43 | DR.PROGNOT ---
Hospital Progress Notes - Progress Note for Day of: Progress Note Date: 08/16/20 - Chief Complaint Chief Complaint: qfeeling better today .. Pt is more cooperative . BS 160. WBC normal . drassing was changed : erythemal and edema are less with minimal drainage .. - Past Medical Family Social History Past Med/Fam/Surg Hx: No changes since H&P Allergies: Allergies No Known Drug Allergies Allergy (Verified 08/13/20 12:54) - Review Of Systems ROS: No change since H&P - Vital Signs Vital Signs: Temperature 97.7 F Pulse Rate [Radial] 66 Pulse Rate [Right Brachial] 100 Pulse Rate [Left Brachial] 64 Pulse Rate [Right Radial] 78 Pulse Rate 83 Respiratory Rate 18 Blood Pressure [Right Arm] 153/84 Blood Pressure [Left Arm] 151/66 Blood Pressure 166/82 O2 Sat by Pulse Oximetry 100 - Physical Exam Oriented: Normal Eyes: Normal Ear: Normal Nose: Normal Throat: Normal Respiratory: Generalized, Diminished Cardiovascular: Normal : Normal GI:Auscultation: Normal GI:Palpation: Normal GI: Tenderness: Normal Skin: Red, Tender, Wound (left great toe edematous with erythema and necrotic crusting to base of toe. Twice circumference of right great toe.) Musculoskeletal: Left, Foot, Swelling Psychiatric: Normal Mood Description: Calm Affect: Normal Speech Pattern: Clear, Appropriate - Laboratory and Diagnostics Result Diagrams: 08/16/20 04:15 08/16/20 04:15 Labs: 08/15/20 12:56 Toe - Left Big Wound Gram Stain - Final 08/15/20 12:56 Toe - Left Big Wound Culture - Preliminary 08/13/20 13:53 Blood Blood Culture - Preliminary 08/13/20 13:49 Blood Blood Culture - Preliminary 08/13/20 13:58 Toe - Left Big Wound Gram Stain - Final 08/13/20 13:58 Toe - Left Big Wound Culture - Final Escherichia Coli Proteus Vulgaris Laboratory WBC 5.6 X10^3/uL (3.6-10.0) 08/16/20 04:15 RBC 3.85 X10^6/uL (4.7-6.0) L 08/16/20 04:15 Hgb 12.3 g/dL (13.5-18.0) L 08/16/20 04:15 Hct 35.0 % (42.0-54.0) L 08/16/20 04:15 MCV 91.0 fL (80.0-100.0) 08/16/20 04:15 MCH 31.9 pg (27.0-34.0) 08/16/20 04:15 MCHC 35.1 g/dL (33.0-35.0) H 08/16/20 04:15 RDW 12.9 % (11.6-16.5) 08/16/20 04:15 Plt Count 272 X10^3/uL (150.0-450.0) 08/16/20 04:15 MPV 7.7 fL (7.4-11.0) 08/16/20 04:15 Neut % (Auto) 61.1 % (42.0-75.0) 08/16/20 04:15 Lymph % (Auto) 22.9 % (21.0-51.0) 08/16/20 04:15 [place] % (Auto) 9.7 % (0.0-13.0) 08/16/20 04:15 Eos % (Auto) 5.2 % (0.9-2.9) H 08/16/20 04:15 Baso % (Auto) 1.1 % (0.2-1.0) H 08/16/20 04:15 Neut # (Auto) 3.4 x10^3/uL (2.2-4.8) 08/16/20 04:15 Lymph # (Auto) 1.3 X10^3/uL (1.3-2.9) 08/16/20 04:15 [place] # (Auto) 0.5 x10^3/uL (0.3-0.8) 08/16/20 04:15 Eos # (Auto) 0.3 x10^3/uL (0.0-0.2) H 08/16/20 04:15 Baso # (Auto) 0.1 X10^3/uL (0.0-0.1) 08/16/20 04:15 Absolute Nucleated RBC 0.0 /100WBC 08/16/20 04:15 Sample Site Rr 08/13/20 17:51 ABG pH 7.480 (7.35-7.45) H 08/13/20 17:51 ABG pCO2 40.0 mmHg (35.0-45.0) 08/13/20 17:51 ABG pO2 86.0 mmHg (80.0-100.0) 08/13/20 17:51 ABG HCO3 29.8 mmol/L (22-26) H 08/13/20 17:51 ABG O2 Saturation 97.0 % (90-100) 08/13/20 17:51 ABG Base Excess 5.8 mmol/L (-2.0-2.0) H 08/13/20 17:51 [place]reket Test Pos 08/13/20 17:51 A-a Gradient 14.0 mmHg 08/13/20 17:51 FiO2 21 08/13/20 17:51 Blood Gas Comments Pt tianna well cdn 08/13/20 17:51 Sodium 141 mmol/L (136-145) 08/16/20 04:15 Corrected Sodium 143 mmol/L (136-145) 08/16/20 04:15 Potassium 3.9 mmol/L (3.5-5.1) 08/16/20 04:15 Chloride 105 mmol/L (98-107) 08/16/20 04:15 Carbon Dioxide 30.0 mmol/L (21-32) 08/16/20 04:15 BUN 9 mg/dL (7-18) 08/16/20 04:15 Creatinine 1.02 mg/dL (0.70-1.30) 08/16/20 04:15 Est GFR (MDRD) Af Amer > 60 (>60) 08/16/20 04:15 Est GFR (MDRD) Non-Af > 60 (>60) 08/16/20 04:15 Glucose 197 mg/dL (65-99) H 08/16/20 04:15 POC Glucose (mg/dL) 260 mg/dL (65-99) H 08/16/20 11:16 Hemoglobin A1c 10.5 % 08/13/20 13:49 Calcium 8.7 mg/dL (8.5-10.1) 08/16/20 04:15 Corrected Calcium 9.7 mg/dL (8.5-10.1) 08/16/20 04:15 Total Bilirubin 0.40 mg/dL (0.2-1.0) 08/16/20 04:15 AST 25 Units/L (15-37) 08/16/20 04:15 ALT 26 Units/L (12-78) 08/16/20 04:15 Alkaline Phosphatase 58 Units/L (46-116) 08/16/20 04:15 Total Protein 7.4 g/dL (6.4-8.2) 08/16/20 04:15 Albumin 2.8 g/dL (3.4-5.0) L 08/16/20 04:15 Globulin 4.6 g/dL (2.5-4.5) H 08/16/20 04:15 Albumin/Globulin Ratio 0.6 Ratio (1.1-2.1) L 08/16/20 04:15 Vancomycin Trough 13.8 ug/mL (15-20) L 08/16/20 04:15 Acetone, Semi-Quant Negative (NEGATIVE) 08/13/20 13:49 SARS CoV-2 RNA Rapid CONSTANCE Negative (NEGATIVE) 08/13/20 15:45 - Assessment and Plan 1: osteomyelitis and abscess proximal Lt great toe . DM with neuropathy . PIC line was placed .. same IV ATB and local care . needs IV ATB for 6 weeks .. - Problem Patient Problems: Patient Problems Osteomyelitis of foot, left, acute (Acute) M86.172 Diabetic foot ulcer (Acute) E11.621, L97.509 Septic joint (Acute) M00.9 Diabetes (Chronic) E11.9
[2020-08-16] MEDS: SNACK - Diabetic Appropriate PO SCH (21:12)
[2020-08-17] MEDS: NS 1000 ML 1,000 ML IV SCH ×4 (00:06→17:15)
[2020-08-17] MEDS: ZOSYN VIAL 3.375 GRAMS 3.375 G in NS 100 ML IV + SPIKE MINIBAG* 100 ML IV SCH ×3 (05:15→20:30)
[2020-08-17 06:16] LABS: BASOPHILS # (AUTO) 0.1 X10^3/uL (0.0-0.1); BASOPHILS % (AUTO) 1.3 % (0.2-1.0); EOSINOPHILS # (AUTO) 0.2 x10^3/uL (0.0-0.2); EOSINOPHILS % (AUTO) 4.7 % (0.9-2.9); HEMATOCRIT 33.8 % (42.0-54.0); HEMOGLOBIN 11.7 g/dL (13.5-18.0); LYMPHOCYTES # (AUTO) 1.3 X10^3/uL (1.3-2.9); LYMPHOCYTES % (AUTO) 25.1 % (21.0-51.0); MEAN CORPUSCULAR HEMOGLOBIN 31.9 pg (27.0-34.0); MEAN CORPUSCULAR HGB CONC 34.7 g/dL (33.0-35.0); MEAN PLATELET VOLUME 7.8 fL (7.4-11.0); MONOCYTES # (AUTO) 0.4 x10^3/uL (0.3-0.8); MONOCYTES % (AUTO) 8.6 % (0.0-13.0); NEUTROPHILS # (AUTO) 3.1 x10^3/uL (2.2-4.8); NEUTROPHILS % (AUTO) 60.3 % (42.0-75.0); PLATELET COUNT 237 X10^3/uL (150.0-450.0); RED BLOOD COUNT 3.67 X10^6/uL (4.7-6.0); RED CELL DISTRIBUTION WIDTH 12.9 % (11.6-16.5); WHITE BLOOD COUNT 5.1 X10^3/uL (3.6-10.0)
[2020-08-17 06:23] LABS: VANCOMYCIN,TROUGH 16.3 ug/mL (15-20)
[2020-08-17 06:33] LABS: ALANINE AMINOTRANSFERASE 25 Units/L (12-78); ALBUMIN 2.7 g/dL (3.4-5.0); ALKALINE PHOSPHATASE 51 Units/L (46-116); ASPARTATE AMINO TRANSFERASE 22 Units/L (15-37); BLOOD UREA NITROGEN 6 mg/dL (7-18); CALCIUM 8.5 mg/dL (8.5-10.1); CARBON DIOXIDE 28.9 mmol/L (21-32); CHLORIDE 107 mmol/L (98-107); COR CA(FOR HYPOALB) 9.5 mg/dL (8.5-10.1); COR NA(FOR HYPERGLY) 143 mmol/L (136-145); CREATININE 0.89 mg/dL (0.70-1.30); SODIUM 142 mmol/L (136-145); eGFR NON BLACK RACES > 60 (>60)
[2020-08-17] MEDS: VANCOMYCIN IV *PREMIX 1 G/200 ML BAG 1 G/200 ML PIGGYBACK IV SCH ×3 (07:32→20:30)
[2020-08-17] MEDS: CHECK PATCH XX SCH ×2 (08:19→20:19)
[2020-08-17] MEDS: ACTOS PO SCH (12:32)
[2020-08-17] MEDS: COZAAR PO SCH (12:33)
[2020-08-17] MEDS: GLUCOPHAGE XR 24-HR PO SCH ×2 (12:33→20:30)
[2020-08-17] MEDS: HumuLIN R SUBCUT PRN ×3 (18:08→21:45)
[2020-08-17] MEDS: SNACK - Diabetic Appropriate PO SCH (19:29)
[2020-08-18] MEDS: NS 1000 ML 1,000 ML IV SCH ×7 (00:18→23:00)
[2020-08-18] MEDS: VANCOMYCIN IV *PREMIX 1 G/200 ML BAG 1 G/200 ML PIGGYBACK IV SCH ×3 (06:08→21:11)
[2020-08-18] MEDS: ZOSYN VIAL 3.375 GRAMS 3.375 G in NS 100 ML IV + SPIKE MINIBAG* 100 ML IV SCH ×3 (06:08→21:12)
[2020-08-18 06:13] LABS: BASOPHILS # (AUTO) 0.1 X10^3/uL (0.0-0.1); BASOPHILS % (AUTO) 1.3 % (0.2-1.0); EOSINOPHILS # (AUTO) 0.3 x10^3/uL (0.0-0.2); EOSINOPHILS % (AUTO) 5.4 % (0.9-2.9); HEMATOCRIT 34.8 % (42.0-54.0); HEMOGLOBIN 11.9 g/dL (13.5-18.0); LYMPHOCYTES # (AUTO) 1.5 X10^3/uL (1.3-2.9); LYMPHOCYTES % (AUTO) 28.5 % (21.0-51.0); MEAN CORPUSCULAR HEMOGLOBIN 31.3 pg (27.0-34.0); MEAN CORPUSCULAR HGB CONC 34.2 g/dL (33.0-35.0); MEAN CORPUSCULAR VOLUME 91.7 fL (80.0-100.0); MEAN PLATELET VOLUME 7.6 fL (7.4-11.0); MONOCYTES # (AUTO) 0.4 x10^3/uL (0.3-0.8); MONOCYTES % (AUTO) 7.7 % (0.0-13.0); NEUTROPHILS % (AUTO) 57.1 % (42.0-75.0); PLATELET COUNT 242 X10^3/uL (150.0-450.0); RED CELL DISTRIBUTION WIDTH 13.1 % (11.6-16.5); WHITE BLOOD COUNT 5.2 X10^3/uL (3.6-10.0)
[2020-08-18 06:29] LABS: ALANINE AMINOTRANSFERASE 29 Units/L (12-78); ALBUMIN 2.8 g/dL (3.4-5.0); ALKALINE PHOSPHATASE 52 Units/L (46-116); ASPARTATE AMINO TRANSFERASE 20 Units/L (15-37); BLOOD UREA NITROGEN 8 mg/dL (7-18); CALCIUM 8.4 mg/dL (8.5-10.1); CARBON DIOXIDE 29.8 mmol/L (21-32); CHLORIDE 107 mmol/L (98-107); COR CA(FOR HYPOALB) 9.4 mg/dL (8.5-10.1); COR NA(FOR HYPERGLY) 145 mmol/L (136-145); CREATININE 0.93 mg/dL (0.70-1.30); SODIUM 144 mmol/L (136-145); TOTAL PROTEIN 7.2 g/dL (6.4-8.2); eGFR NON BLACK RACES > 60 (>60)
[2020-08-18] MEDS: ACTOS PO SCH (08:18)
[2020-08-18] MEDS: COZAAR PO SCH (08:19)
[2020-08-18] MEDS: GLUCOPHAGE XR 24-HR PO SCH ×2 (08:19→20:38)
[2020-08-18] MEDS: CHECK PATCH XX SCH ×2 (08:29→20:45)
[2020-08-18] MEDS: HumuLIN R SUBCUT PRN ×2 (11:46→20:38)
[2020-08-18 13:57] LABS: CREATININE 0.97 mg/dL (0.70-1.30); VANCOMYCIN,TROUGH 15.3 ug/mL (15-20)
[2020-08-18] MEDS: SNACK - Diabetic Appropriate PO SCH (20:46)
[2020-08-19] MEDS: ZOSYN VIAL 3.375 GRAMS 3.375 G in NS 100 ML IV + SPIKE MINIBAG* 100 ML IV SCH (05:18)
[2020-08-19] MEDS: NS 1000 ML 1,000 ML IV SCH ×4 (05:18→21:12)
[2020-08-19] MEDS: VANCOMYCIN IV *PREMIX 1 G/200 ML BAG 1 G/200 ML PIGGYBACK IV SCH ×3 (05:20→21:13)
[2020-08-19 05:40] LABS: BASOPHILS # (AUTO) 0.1 X10^3/uL (0.0-0.1); BASOPHILS % (AUTO) 1.2 % (0.2-1.0); EOSINOPHILS # (AUTO) 0.2 x10^3/uL (0.0-0.2); EOSINOPHILS % (AUTO) 4.9 % (0.9-2.9); HEMATOCRIT 31.3 % (42.0-54.0); HEMOGLOBIN 10.9 g/dL (13.5-18.0); LYMPHOCYTES # (AUTO) 1.2 X10^3/uL (1.3-2.9); LYMPHOCYTES % (AUTO) 24.2 % (21.0-51.0); MEAN CORPUSCULAR HEMOGLOBIN 31.8 pg (27.0-34.0); MEAN CORPUSCULAR HGB CONC 34.9 g/dL (33.0-35.0); MEAN CORPUSCULAR VOLUME 90.9 fL (80.0-100.0); MEAN PLATELET VOLUME 8.3 fL (7.4-11.0); MONOCYTES # (AUTO) 0.4 x10^3/uL (0.3-0.8); MONOCYTES % (AUTO) 7.5 % (0.0-13.0); NEUTROPHILS # (AUTO) 3.1 x10^3/uL (2.2-4.8); NEUTROPHILS % (AUTO) 62.2 % (42.0-75.0); PLATELET COUNT 226 X10^3/uL (150.0-450.0); RED BLOOD COUNT 3.44 X10^6/uL (4.7-6.0); RED CELL DISTRIBUTION WIDTH 13.1 % (11.6-16.5); WHITE BLOOD COUNT 5.1 X10^3/uL (3.6-10.0)
[2020-08-19 05:49] LABS: CREATININE 0.86 mg/dL (0.70-1.30); VANCOMYCIN,TROUGH 15.5 ug/mL (15-20)
[2020-08-19 05:52] LABS: ALANINE AMINOTRANSFERASE 22 Units/L (12-78); ALBUMIN 2.7 g/dL (3.4-5.0); ALKALINE PHOSPHATASE 47 Units/L (46-116); ASPARTATE AMINO TRANSFERASE 13 Units/L (15-37); BLOOD UREA NITROGEN 8 mg/dL (7-18); CALCIUM 8.3 mg/dL (8.5-10.1); CARBON DIOXIDE 28.9 mmol/L (21-32); CHLORIDE 107 mmol/L (98-107); COR CA(FOR HYPOALB) 9.3 mg/dL (8.5-10.1); COR NA(FOR HYPERGLY) 144 mmol/L (136-145); CREATININE 0.83 mg/dL (0.70-1.30); SODIUM 143 mmol/L (136-145); TOTAL PROTEIN 6.7 g/dL (6.4-8.2); eGFR NON BLACK RACES > 60 (>60)
[2020-08-19] MEDS ORDERED: POTASSIUM CHL 60 MEQ/NS 0.45% 500 ML IV PRN (06:28)
[2020-08-19] MEDS ORDERED: POTASSIUM CHLORIDE LIQ 20 MEQ UDC PO PRN (06:28)
[2020-08-19] MEDS ORDERED: KLOR-CON PO PRN (06:28)
[2020-08-19] MEDS ORDERED: POTASSIUM CHL 40 MEQ/NS 0.45% 500 ML IV PRN (06:28)
[2020-08-19] MEDS ORDERED: MICRO K EXTEN CAP 10 MEQ PO PRN (06:28)
[2020-08-19] MEDS ORDERED: K-RIDER 10 MEQ/NS 100 ML 10 MEQ/100 ML BAG IV PRN (06:28)
[2020-08-19] MEDS: CHECK PATCH XX SCH ×2 (08:01→20:35)
[2020-08-19] MEDS: K-DUR TAB 20 MEQ PO PRN (08:18)
[2020-08-19] MEDS: ACTOS PO SCH (08:18)
[2020-08-19] MEDS: GLUCOPHAGE XR 24-HR PO SCH ×2 (08:19→20:35)
[2020-08-19] MEDS: COZAAR PO SCH (08:19)
[2020-08-19] MEDS: MAGNESIUM SULFATE 1 GRAM/100 mL PREMIX 1 GM/100 ML BAG IV PRN ×4 (08:24→16:06)
[2020-08-19] MEDS: ZOSYN VIAL 4.5 GRAMS 4.5 G in NS 100 ML IV + SPIKE MINIBAG* 100 ML IV SCH ×2 (13:39→21:13)
[2020-08-19] MEDS: SNACK - Diabetic Appropriate PO SCH (20:33)
--- NOTE | 2020-08-19 21:33 | DR.PROGNOT ---
Hospital Progress Notes - Progress Note for Day of: Progress Note Date: 08/19/20 - Chief Complaint Chief Complaint: no changes . minimal drainage . Vanco level 15.5. BS 155. WBC normal . Pt is more cooperative . BS 160. WBC normal . drassing was changed : erythemal and edema are less with minimal drainage .. - Past Medical Family Social History Past Med/Fam/Surg Hx: No changes since H&P Allergies: Allergies No Known Drug Allergies Allergy (Verified 08/13/20 12:54) - Review Of Systems ROS: No change since H&P - Vital Signs Vital Signs: Temperature 98.6 F Pulse Rate [Radial] 61 Pulse Rate [Right Brachial] 100 Pulse Rate [Left Brachial] 64 Pulse Rate [Right Radial] 78 Pulse Rate 71 Respiratory Rate 16 Blood Pressure [Right Arm] 142/73 Blood Pressure [Left Arm] 196/96 Blood Pressure 166/82 O2 Sat by Pulse Oximetry 98 - Physical Exam Oriented: Normal Eyes: Normal Ear: Normal Nose: Normal Throat: Normal Respiratory: Generalized, Diminished Cardiovascular: Normal : Normal GI:Auscultation: Normal GI:Palpation: Normal GI: Tenderness: Normal Skin: Red, Tender, Wound (less erythema . no necrosis or abscess formation .) Musculoskeletal: Left, Knee, Foot, Swelling Psychiatric: Normal Mood Description: Calm Affect: Normal Speech Pattern: Clear, Appropriate - Laboratory and Diagnostics Result Diagrams: 08/19/20 04:40 08/19/20 04:40 Labs: 08/13/20 13:53 Blood Blood Culture - Final 08/13/20 13:49 Blood Blood Culture - Final 08/15/20 12:56 Toe - Left Big Wound Gram Stain - Final 08/15/20 12:56 Toe - Left Big Wound Culture - Final Escherichia Coli Proteus Vulgaris 08/13/20 13:58 Toe - Left Big Wound Gram Stain - Final 08/13/20 13:58 Toe - Left Big Wound Culture - Final Escherichia Coli Proteus Vulgaris Laboratory WBC 5.1 X10^3/uL (3.6-10.0) 08/19/20 04:40 RBC 3.44 X10^6/uL (4.7-6.0) L 08/19/20 04:40 Hgb 10.9 g/dL (13.5-18.0) L 08/19/20 04:40 Hct 31.3 % (42.0-54.0) L 08/19/20 04:40 MCV 90.9 fL (80.0-100.0) 08/19/20 04:40 MCH 31.8 pg (27.0-34.0) 08/19/20 04:40 MCHC 34.9 g/dL (33.0-35.0) 08/19/20 04:40 RDW 13.1 % (11.6-16.5) 08/19/20 04:40 Plt Count 226 X10^3/uL (150.0-450.0) 08/19/20 04:40 MPV 8.3 fL (7.4-11.0) 08/19/20 04:40 Neut % (Auto) 62.2 % (42.0-75.0) 08/19/20 04:40 Lymph % (Auto) 24.2 % (21.0-51.0) 08/19/20 04:40 [place] % (Auto) 7.5 % (0.0-13.0) 08/19/20 04:40 Eos % (Auto) 4.9 % (0.9-2.9) H 08/19/20 04:40 Baso % (Auto) 1.2 % (0.2-1.0) H 08/19/20 04:40 Neut # (Auto) 3.1 x10^3/uL (2.2-4.8) 08/19/20 04:40 Lymph # (Auto) 1.2 X10^3/uL (1.3-2.9) L 08/19/20 04:40 [place] # (Auto) 0.4 x10^3/uL (0.3-0.8) 08/19/20 04:40 Eos # (Auto) 0.2 x10^3/uL (0.0-0.2) 08/19/20 04:40 Baso # (Auto) 0.1 X10^3/uL (0.0-0.1) 08/19/20 04:40 Absolute Nucleated RBC 0.1 /100WBC 08/19/20 04:40 Sample Site Rr 08/13/20 17:51 ABG pH 7.480 (7.35-7.45) H 08/13/20 17:51 ABG pCO2 40.0 mmHg (35.0-45.0) 08/13/20 17:51 ABG pO2 86.0 mmHg (80.0-100.0) 08/13/20 17:51 ABG HCO3 29.8 mmol/L (22-26) H 08/13/20 17:51 ABG O2 Saturation 97.0 % (90-100) 08/13/20 17:51 ABG Base Excess 5.8 mmol/L (-2.0-2.0) H 08/13/20 17:51 [place]re[place] Test Pos 08/13/20 17:51 A-a Gradient 14.0 mmHg 08/13/20 17:51 FiO2 21 08/13/20 17:51 Blood Gas Comments Pt tianna well cdn 08/13/20 17:51 Sodium 143 mmol/L (136-145) 08/19/20 04:40 Corrected Sodium 144 mmol/L (136-145) 08/19/20 04:40 Potassium 3.7 mmol/L (3.5-5.1) 08/19/20 04:40 Chloride 107 mmol/L (98-107) 08/19/20 04:40 Carbon Dioxide 28.9 mmol/L (21-32) 08/19/20 04:40 BUN 8 mg/dL (7-18) 08/19/20 04:40 Creatinine 0.83 mg/dL (0.70-1.30) 08/19/20 04:40 Creatinine 0.86 mg/dL (0.70-1.30) 08/19/20 04:40 Est GFR (MDRD) Af Amer > 60 (>60) 08/19/20 04:40 Est GFR (MDRD) Non-Af > 60 (>60) 08/19/20 04:40 Glucose 135 mg/dL (65-99) H 08/19/20 04:40 POC Glucose (mg/dL) 153 mg/dL (65-99) H 08/19/20 19:48 Hemoglobin A1c 10.5 % 08/13/20 13:49 Calcium 8.3 mg/dL (8.5-10.1) L 08/19/20 04:40 Corrected Calcium 9.3 mg/dL (8.5-10.1) 08/19/20 04:40 Magnesium 1.3 mg/dL (1.7-2.9) L 08/19/20 04:40 Total Bilirubin 0.30 mg/dL (0.2-1.0) 08/19/20 04:40 AST 13 Units/L (15-37) L 08/19/20 04:40 ALT 22 Units/L (12-78) 08/19/20 04:40 Alkaline Phosphatase 47 Units/L (46-116) 08/19/20 04:40 Total Protein 6.7 g/dL (6.4-8.2) 08/19/20 04:40 Albumin 2.7 g/dL (3.4-5.0) L 08/19/20 04:40 Globulin 4.0 g/dL (2.5-4.5) 08/19/20 04:40 Albumin/Globulin Ratio 0.7 Ratio (1.1-2.1) L 08/19/20 04:40 Vancomycin Trough 15.5 ug/mL (15-20) 08/19/20 04:40 Acetone, Semi-Quant Negative (NEGATIVE) 08/13/20 13:49 SARS CoV-2 RNA Rapid CONSTANCE Negative (NEGATIVE) 08/13/20 15:45 - Assessment and Plan 1: osteomyelitis and abscess proximal Lt great toe . DM with neuropathy . same IV ATB and local care . to arrange for home IV ATB for 6 weeks. and office FU . - Problem Patient Problems: Patient Problems Osteomyelitis of foot, left, acute (Acute) M86.172 Diabetic foot ulcer (Acute) E11.621, L97.509 Septic joint (Acute) M00.9 Diabetes (Chronic) E11.9
[2020-08-20] MEDS: NS 1000 ML 1,000 ML IV SCH ×2 (00:15→09:25)
[2020-08-20] MEDS: ZOSYN VIAL 4.5 GRAMS 4.5 G in NS 100 ML IV + SPIKE MINIBAG* 100 ML IV SCH (05:30)
[2020-08-20 05:32] LABS: BASOPHILS # (AUTO) 0.1 X10^3/uL (0.0-0.1); EOSINOPHILS # (AUTO) 0.3 x10^3/uL (0.0-0.2); EOSINOPHILS % (AUTO) 4.9 % (0.9-2.9); HEMATOCRIT 34.7 % (42.0-54.0); LYMPHOCYTES % (AUTO) 17.1 % (21.0-51.0); MEAN CORPUSCULAR HEMOGLOBIN 31.6 pg (27.0-34.0); MEAN CORPUSCULAR HGB CONC 34.6 g/dL (33.0-35.0); MEAN CORPUSCULAR VOLUME 91.4 fL (80.0-100.0); MEAN PLATELET VOLUME 7.8 fL (7.4-11.0); MONOCYTES # (AUTO) 0.4 x10^3/uL (0.3-0.8); MONOCYTES % (AUTO) 7.6 % (0.0-13.0); NEUTROPHILS # (AUTO) 4.1 x10^3/uL (2.2-4.8); NEUTROPHILS % (AUTO) 69.4 % (42.0-75.0); PLATELET COUNT 273 X10^3/uL (150.0-450.0); RED BLOOD COUNT 3.79 X10^6/uL (4.7-6.0); RED CELL DISTRIBUTION WIDTH 13.2 % (11.6-16.5); WHITE BLOOD COUNT 5.9 X10^3/uL (3.6-10.0)
[2020-08-20 05:43] LABS: ALANINE AMINOTRANSFERASE 25 Units/L (12-78); ALBUMIN 3.1 g/dL (3.4-5.0); ALKALINE PHOSPHATASE 52 Units/L (46-116); ASPARTATE AMINO TRANSFERASE 16 Units/L (15-37); BLOOD UREA NITROGEN 7 mg/dL (7-18); CALCIUM 8.6 mg/dL (8.5-10.1); CARBON DIOXIDE 28.3 mmol/L (21-32); CHLORIDE 106 mmol/L (98-107); COR CA(FOR HYPOALB) 9.3 mg/dL (8.5-10.1); COR NA(FOR HYPERGLY) 142 mmol/L (136-145); MAGNESIUM 1.7 mg/dL (1.7-2.9); SODIUM 141 mmol/L (136-145); TOTAL PROTEIN 7.6 g/dL (6.4-8.2); eGFR NON BLACK RACES > 60 (>60)
[2020-08-20 05:51] LABS: VANCOMYCIN,TROUGH 16.5 ug/mL (15-20)
[2020-08-20] MEDS: VANCOMYCIN IV *PREMIX 1 G/200 ML BAG 1 G/200 ML PIGGYBACK IV SCH (05:55)
[2020-08-20 08:10] VITALS: BP 182/78
--- NOTE | 2020-08-20 08:47 | DR.PROGNOT ---
Hospital Progress Notes - Progress Note for Day of: Progress Note Date: 08/20/20 - Chief Complaint Chief Complaint: no changes . minimal drainage . Vanco level 16.5. BS 146. WBC normal. drassing was changed : all drains were removed .. no active infection or necrosis - Past Medical Family Social History Past Med/Fam/Surg Hx: No changes since H&P Allergies: Allergies No Known Drug Allergies Allergy (Verified 08/13/20 12:54) - Review Of Systems ROS: No change since H&P - Vital Signs Vital Signs: Temperature 98.1 F Pulse Rate [Radial] 68 Pulse Rate [Right Brachial] 100 Pulse Rate [Left Brachial] 64 Pulse Rate [Right Radial] 78 Pulse Rate 71 Respiratory Rate 20 Blood Pressure [Right Arm] 142/73 Blood Pressure [Left Arm] 182/78 Blood Pressure 166/82 O2 Sat by Pulse Oximetry 98 - Physical Exam Oriented: Normal Eyes: Normal Ear: Normal Nose: Normal Throat: Normal Respiratory: Generalized, Diminished Cardiovascular: Normal : Normal GI:Auscultation: Normal GI:Palpation: Normal GI: Tenderness: Normal Skin: Red, Tender, Wound (less erythema . no necrosis or abscess formation .) Musculoskeletal: Left, Knee, Foot, Swelling Psychiatric: Normal Mood Description: Calm Affect: Normal Speech Pattern: Clear, Appropriate - Laboratory and Diagnostics Result Diagrams: 08/20/20 04:54 08/20/20 04:54 Labs: 08/13/20 13:53 Blood Blood Culture - Final 08/13/20 13:49 Blood Blood Culture - Final 08/15/20 12:56 Toe - Left Big Wound Gram Stain - Final 08/15/20 12:56 Toe - Left Big Wound Culture - Final Escherichia Coli Proteus Vulgaris 08/13/20 13:58 Toe - Left Big Wound Gram Stain - Final 08/13/20 13:58 Toe - Left Big Wound Culture - Final Escherichia Coli Proteus Vulgaris Laboratory WBC 5.9 X10^3/uL (3.6-10.0) 08/20/20 04:54 RBC 3.79 X10^6/uL (4.7-6.0) L 08/20/20 04:54 Hgb 12.0 g/dL (13.5-18.0) L 08/20/20 04:54 Hct 34.7 % (42.0-54.0) L 08/20/20 04:54 MCV 91.4 fL (80.0-100.0) 08/20/20 04:54 MCH 31.6 pg (27.0-34.0) 08/20/20 04:54 MCHC 34.6 g/dL (33.0-35.0) 08/20/20 04:54 RDW 13.2 % (11.6-16.5) 08/20/20 04:54 Plt Count 273 X10^3/uL (150.0-450.0) 08/20/20 04:54 MPV 7.8 fL (7.4-11.0) 08/20/20 04:54 Neut % (Auto) 69.4 % (42.0-75.0) 08/20/20 04:54 Lymph % (Auto) 17.1 % (21.0-51.0) L 08/20/20 04:54 [place] % (Auto) 7.6 % (0.0-13.0) 08/20/20 04:54 Eos % (Auto) 4.9 % (0.9-2.9) H 08/20/20 04:54 Baso % (Auto) 1.0 % (0.2-1.0) 08/20/20 04:54 Neut # (Auto) 4.1 x10^3/uL (2.2-4.8) 08/20/20 04:54 Lymph # (Auto) 1.0 X10^3/uL (1.3-2.9) L 08/20/20 04:54 [place] # (Auto) 0.4 x10^3/uL (0.3-0.8) 08/20/20 04:54 Eos # (Auto) 0.3 x10^3/uL (0.0-0.2) H 08/20/20 04:54 Baso # (Auto) 0.1 X10^3/uL (0.0-0.1) 08/20/20 04:54 Absolute Nucleated RBC 0.0 /100WBC 08/20/20 04:54 Sample Site Rr 08/13/20 17:51 ABG pH 7.480 (7.35-7.45) H 08/13/20 17:51 ABG pCO2 40.0 mmHg (35.0-45.0) 08/13/20 17:51 ABG pO2 86.0 mmHg (80.0-100.0) 08/13/20 17:51 ABG HCO3 29.8 mmol/L (22-26) H 08/13/20 17:51 ABG O2 Saturation 97.0 % (90-100) 08/13/20 17:51 ABG Base Excess 5.8 mmol/L (-2.0-2.0) H 08/13/20 17:51 [place] Test Pos 08/13/20 17:51 A-a Gradient 14.0 mmHg 08/13/20 17:51 FiO2 21 08/13/20 17:51 Blood Gas Comments Pt tianna well cdn 08/13/20 17:51 Sodium 141 mmol/L (136-145) 08/20/20 04:54 Corrected Sodium 142 mmol/L (136-145) 08/20/20 04:54 Potassium 3.8 mmol/L (3.5-5.1) 08/20/20 04:54 Chloride 106 mmol/L (98-107) 08/20/20 04:54 Carbon Dioxide 28.3 mmol/L (21-32) 08/20/20 04:54 BUN 7 mg/dL (7-18) 08/20/20 04:54 Creatinine 1.00 mg/dL (0.70-1.30) 08/20/20 04:54 Est GFR (MDRD) Af Amer > 60 (>60) 08/20/20 04:54 Est GFR (MDRD) Non-Af > 60 (>60) 08/20/20 04:54 Glucose 135 mg/dL (65-99) H 08/20/20 04:54 POC Glucose (mg/dL) 148 mg/dL (65-99) H 08/20/20 05:26 Hemoglobin A1c 10.5 % 08/13/20 13:49 Calcium 8.6 mg/dL (8.5-10.1) 08/20/20 04:54 Corrected Calcium 9.3 mg/dL (8.5-10.1) 08/20/20 04:54 Magnesium 1.7 mg/dL (1.7-2.9) 08/20/20 04:54 Total Bilirubin 0.30 mg/dL (0.2-1.0) 08/20/20 04:54 AST 16 Units/L (15-37) 08/20/20 04:54 ALT 25 Units/L (12-78) 08/20/20 04:54 Alkaline Phosphatase 52 Units/L (46-116) 08/20/20 04:54 Total Protein 7.6 g/dL (6.4-8.2) 08/20/20 04:54 Albumin 3.1 g/dL (3.4-5.0) L 08/20/20 04:54 Globulin 4.5 g/dL (2.5-4.5) 08/20/20 04:54 Albumin/Globulin Ratio 0.7 Ratio (1.1-2.1) L 08/20/20 04:54 Vancomycin Trough 16.5 ug/mL (15-20) 08/20/20 04:54 Acetone, Semi-Quant Negative (NEGATIVE) 08/13/20 13:49 SARS CoV-2 RNA Rapid CONSTANCE Negative (NEGATIVE) 08/13/20 15:45 - Assessment and Plan 1: osteomyelitis and abscess proximal Lt great toe . DM with neuropathy . same IV ATB at home via PIC line . . VNA . F/U in one wek .. - Problem Patient Problems: Patient Problems Osteomyelitis of foot, left, acute (Acute) M86.172 Diabetic foot ulcer (Acute) E11.621, L97.509 Septic joint (Acute) M00.9 Diabetes (Chronic) E11.9
--- NOTE | 2020-08-20 09:01 | PCM.PROG ---
Progress Note - Progress Note for Day of Date of Exam: 08/19/20 - Subjective Subjective: WAS ADMITTED ON 08/13 FOR OSTEOMYELITIS OF LEFT TOE, CELLULITIS, DIABETIC FOOT ULCER, AND SEPTIC JOINT. HE HAS HAD DEBRIDEMENT OF WOUND AND A PICC LINE WAS INSERTED FOR OUTPATIENT ANTIBIOTICS. PATIENT IS A NON-COMPLIANT DIABETIC. TODAY, HE IS ALERT AND ORIENTED, LYING IN BED ON MORNING ROUNDS. HE DENIES COMPLAINTS THIS MORNING. THERE IS A DRESSING NOTED TO TOE THAT IS DRY AND INTACT AT THIS TIME. IS PERFORMING DRESSING CHANGES. NO DRAINAGE NOTED TO OUTSIDE OF DRESSING AT THIS TIME. HIS VITALS THIS MORNING ARE: 97.5-61-20-99%-150/84. LABS WERE OBTAINED. ABNORMAL LAB VALUES INCLUDE THE FOLLOWING: RBC 3.44, HGB 10.9, HCT 31.3, GLUCOSE 135, CALCIUM 8.3, AST 13, ALBUMIN 2.7. WOUND CULTURES REVEALED GROWTH OF E.COLI AND PROTEUS VULGARIS. BLOOD CULTURES ARE NEGATIVE. RECOMMENDS IV ANTIBIOTICS FOR 6-8 WEEKS AFTER DISCHARGE WELL DAILY DRESSING CHANGES. WE WILL ALSO SEND HIM HOME ON AN ORAL ANTIBIOTIC. HE IS CURRENTLY RECEIVING NORMAL SALINE AT 125 ML/HR, ZOSYN 4.5G IV TID, VANCOMYCIN 1G IV Q8H, ZOFRAN 4MG PO Q8H PRN, MORPHINE 4MG IV Q6H PRN PAIN, OTBS ACHS, CATAPRES PATCH 0.2MG TD/HR, COZAAR 100MG PO DAILY, METFORMIN 1000MG PO BID, ACTOS 30MG PO DAILY, AND HUMULIN R SLIDING SCALE. WE WILL CONTINUE WITH CURRENT PLAN OF CARE TODAY. WILL CONTINUE TO MONITOR HIM. OTHERWISE, WE WILL FOLLOW UP WITH AM LABS AND CONTINUE TO MONITOR. TIME SPENT ON CLINICAL ASSESSMENT, REVIEWING LABS AND IMAGING, DECISION MAKING, AND DOCUMENTATION GREATER THAN 45 MINUTES. - Past Medical Family Social History Past Med/Fam/Surg Hx: No changes since H&P Allergies: Allergies No Known Drug Allergies Allergy (Verified 08/13/20 12:54) - Review of Systems ROS: No change since H&P - Vital Signs and I&O's Vital Signs: Temperature 98.1 F Pulse Rate [Radial] 68 Pulse Rate [Right Brachial] 100 Pulse Rate [Left Brachial] 64 Pulse Rate [Right Radial] 78 Pulse Rate 71 Respiratory Rate 20 Blood Pressure [Right Arm] 142/73 Blood Pressure [Left Arm] 182/78 Blood Pressure 166/82 O2 Sat by Pulse Oximetry 98 Intake and Output: Intake & Output 08/17/20 08/18/20 08/19/20 08/20/20 11:59 11:59 11:59 11:59 Intake Total 5933 / 5933 6604 / 6604 3864 / 3864 4444 / 4444 Output Total 3010 / 3010 1495 / 1495 2700 / 2700 2525 / 2525 Balance 2923 / 2923 5109 / 5109 1164 / 1164 1918 / 1918 - Physical Exam Oriented: Normal Eyes: Normal Ear: Normal Nose: Normal Throat: Normal Respiratory: Generalized, Diminished Cardiovascular: Normal : Normal Auscultation: Bowel Sounds: Normal Palpation: Normal Tenderness: Normal Skin: Red, Tender, Wound (less erythema . no necrosis or abscess formation .) Musculoskeletal: Left, Knee, Foot, Swelling Psychiatric: Normal Mood Description: Calm Affect: Normal Speech Pattern: Clear, Appropriate - Laboratory and Diagnostics Result Diagrams: 08/20/20 04:54 08/20/20 04:54 Labs: 08/13/20 13:53 Blood Blood Culture - Final 08/13/20 13:49 Blood Blood Culture - Final 08/15/20 12:56 Toe - Left Big Wound Gram Stain - Final 08/15/20 12:56 Toe - Left Big Wound Culture - Final Escherichia Coli Proteus Vulgaris 08/13/20 13:58 Toe - Left Big Wound Gram Stain - Final 08/13/20 13:58 Toe - Left Big Wound Culture - Final Escherichia Coli Proteus Vulgaris Laboratory WBC 5.9 X10^3/uL (3.6-10.0) 08/20/20 04:54 RBC 3.79 X10^6/uL (4.7-6.0) L 08/20/20 04:54 Hgb 12.0 g/dL (13.5-18.0) L 08/20/20 04:54 Hct 34.7 % (42.0-54.0) L 08/20/20 04:54 MCV 91.4 fL (80.0-100.0) 08/20/20 04:54 MCH 31.6 pg (27.0-34.0) 08/20/20 04:54 MCHC 34.6 g/dL (33.0-35.0) 08/20/20 04:54 RDW 13.2 % (11.6-16.5) 08/20/20 04:54 Plt Count 273 X10^3/uL (150.0-450.0) 08/20/20 04:54 MPV 7.8 fL (7.4-11.0) 08/20/20 04:54 Neut % (Auto) 69.4 % (42.0-75.0) 08/20/20 04:54 Lymph % (Auto) 17.1 % (21.0-51.0) L 08/20/20 04:54 [place] % (Auto) 7.6 % (0.0-13.0) 08/20/20 04:54 Eos % (Auto) 4.9 % (0.9-2.9) H 08/20/20 04:54 Baso % (Auto) 1.0 % (0.2-1.0) 08/20/20 04:54 Neut # (Auto) 4.1 x10^3/uL (2.2-4.8) 08/20/20 04:54 Lymph # (Auto) 1.0 X10^3/uL (1.3-2.9) L 08/20/20 04:54 [place] # (Auto) 0.4 x10^3/uL (0.3-0.8) 08/20/20 04:54 Eos # (Auto) 0.3 x10^3/uL (0.0-0.2) H 08/20/20 04:54 Baso # (Auto) 0.1 X10^3/uL (0.0-0.1) 08/20/20 04:54 Absolute Nucleated RBC 0.0 /100WBC 08/20/20 04:54 Sample Site Rr 08/13/20 17:51 ABG pH 7.480 (7.35-7.45) H 08/13/20 17:51 ABG pCO2 40.0 mmHg (35.0-45.0) 08/13/20 17:51 ABG pO2 86.0 mmHg (80.0-100.0) 08/13/20 17:51 ABG HCO3 29.8 mmol/L (22-26) H 08/13/20 17:51 ABG O2 Saturation 97.0 % (90-100) 08/13/20 17:51 ABG Base Excess 5.8 mmol/L (-2.0-2.0) H 08/13/20 17:51 [place] Test Pos 08/13/20 17:51 A-a Gradient 14.0 mmHg 08/13/20 17:51 FiO2 21 08/13/20 17:51 Blood Gas Comments Pt tianna well cdn 08/13/20 17:51 Sodium 141 mmol/L (136-145) 08/20/20 04:54 Corrected Sodium 142 mmol/L (136-145) 08/20/20 04:54 Potassium 3.8 mmol/L (3.5-5.1) 08/20/20 04:54 Chloride 106 mmol/L (98-107) 08/20/20 04:54 Carbon Dioxide 28.3 mmol/L (21-32) 08/20/20 04:54 BUN 7 mg/dL (7-18) 08/20/20 04:54 Creatinine 1.00 mg/dL (0.70-1.30) 08/20/20 04:54 Est GFR (MDRD) Af Amer > 60 (>60) 08/20/20 04:54 Est GFR (MDRD) Non-Af > 60 (>60) 08/20/20 04:54 Glucose 135 mg/dL (65-99) H 08/20/20 04:54 POC Glucose (mg/dL) 148 mg/dL (65-99) H 08/20/20 05:26 Hemoglobin A1c 10.5 % 08/13/20 13:49 Calcium 8.6 mg/dL (8.5-10.1) 08/20/20 04:54 Corrected Calcium 9.3 mg/dL (8.5-10.1) 08/20/20 04:54 Magnesium 1.7 mg/dL (1.7-2.9) 08/20/20 04:54 Total Bilirubin 0.30 mg/dL (0.2-1.0) 08/20/20 04:54 AST 16 Units/L (15-37) 08/20/20 04:54 ALT 25 Units/L (12-78) 08/20/20 04:54 Alkaline Phosphatase 52 Units/L (46-116) 08/20/20 04:54 Total Protein 7.6 g/dL (6.4-8.2) 08/20/20 04:54 Albumin 3.1 g/dL (3.4-5.0) L 08/20/20 04:54 Globulin 4.5 g/dL (2.5-4.5) 08/20/20 04:54 Albumin/Globulin Ratio 0.7 Ratio (1.1-2.1) L 08/20/20 04:54 Vancomycin Trough 16.5 ug/mL (15-20) 08/20/20 04:54 Acetone, Semi-Quant Negative (NEGATIVE) 08/13/20 13:49 SARS CoV-2 RNA Rapid CONSTANCE Negative (NEGATIVE) 08/13/20 15:45 - Plan (1) Osteomyelitis of foot, left, acute Status: Acute Plan: WOUND CARE, NORMAL SALINE AT 125 ML/HR, ZOSYN 4.5G IV TID, VANCOMYCIN 1G IV Q8H, ZOFRAN 4MG PO Q8H PRN, MORPHINE 4MG IV Q6H PRN PAIN, OTBS ACHS, CATAPRES PATCH 0.2MG TD/HR, COZAAR 100MG PO DAILY, METFORMIN 1000MG PO BID, ACTOS 30MG PO DAILY, AND HUMULIN R SLIDING SCALE. (2) Septic joint Status: Acute Qualifiers: Septic arthritis location: foot Septic arthritis organism: due to unspecified organism Laterality: left Qualified Code(s): M00.9 - Pyogenic arthritis, unspecified (3) Diabetic foot ulcer Status: Acute Qualifiers: Diabetic foot ulcer location: toe Diabetes mellitus type: type 2 Latera lity: left Non-pressure ulcer stage: unspecified non-pressure ulcer stage Qualified Code(s): E11.621 - Type 2 diabetes mellitus with foot ulcer; L97.529 - Non-pressure chronic ulcer of other part of left foot with unspecified severity Plan: SURGICAL CONSULT - SURGERY PENDING (4) Diabetes Status: Chronic Qualifiers: Diabetes mellitus type: type 2 Diabetes mellitus complication status: with skin complications Diabetes mellitus complication detail: with foot ulcer Plan: BLOOD SUGAR CHECKS WITH SLIDING SCALE COVERAGE
[2020-08-20] MEDS: MAGNESIUM SULFATE 1 GRAM/100 mL PREMIX 1 GM/100 ML BAG IV PRN (09:25)
[2020-08-20] MEDS: COZAAR PO SCH (09:25)
[2020-08-20] MEDS: ACTOS PO SCH (09:25)
[2020-08-20] MEDS: K-DUR TAB 20 MEQ PO PRN (09:26)
[2020-08-20] MEDS: CHECK PATCH XX SCH (09:27)
[2020-08-20] MEDS: GLUCOPHAGE XR 24-HR PO SCH (09:30)
== END 2020-08-20 11:55 | disposition home or self-care (01) | DRG 464 ==
LOC: ER 12:53 → MED/SURG 15:52
PROVIDERS: ADMIT Internal Medicine; ATTEND Internal Medicine
DX: E11.65 Type 2 diabetes mellitus with hyperglycemia; I10 Essential (primary) hypertension; M00.872 Arthritis due to other bacteria, left ankle and foot; L97.528 Non-pressure chronic ulcer of other part of left foot with other specified severity; B96.4 Proteus (mirabilis) (morganii) as the cause of diseases classified elsewhere; E11.621 Type 2 diabetes mellitus with foot ulcer; Z20.822 Contact with and (suspected) exposure to COVID-19; B96.29 Other Escherichia coli [E. coli] as the cause of diseases classified elsewhere; M86.172 Other acute osteomyelitis, left ankle and foot